=== PATIENT | male | born 1975 | race Asian ===

== ENCOUNTER 2020-06-26 12:46 | Emergency (ER) | payer OTHER ==
[~2020-06-26] VITALS: Ht 185.4 cm; Wt 127.0 kg
[2020-06-26 12:46] VITALS: TEMP 99.1
[2020-06-26 13:19] VITALS: BP 163/98
== END 2020-06-26 15:06 | disposition home or self-care (01) ==
LOC: ED 13:01
DX: F20.89 Other schizophrenia (principal)
CPT/HCPCS: 99282